=== PATIENT | female | born 1980 | race Caucasian/White ===

== ENCOUNTER → 2016-08-24 | Outpatient (CLI) | payer OTHER ==
[~2016-08-24] MED LIST: ASCO500C16 PO; FOLI0.4T2 PO; GARL1CAP7; LORA0.5T2 PO; ZIJA
--- NOTE | 2016-08-24 15:47 | DI ---
Indication: ITS.REASON: N92.4 EXCESSIVE BLEEDING PROCEDURE: US TRANSVAGINAL (NON-OB): Encounter: Initial Comparison: None FINDINGS: Transvaginal and transabdominal pelvic imaging was performed. The uterus measures 8.6 x 3.8 x 4.5 cm. The parenchyma is homogeneous without fibroids. The endometrial stripe measures 11 mm in thickness. There is no evidence of focal endometrial mass. Fluid in the cervical canal. Both ovaries are identified. The right ovary measures 3 x 1.4 x 2.8 cm. The left ovary measures 3.3 x 2.1 x 2.5 cm. Possible hemorrhagic cyst in the left ovary measuring 1.6 cm in size. There are no abnormal adnexal masses detected. Small amount of free fluid. IMPRESSION: 1. Nonspecific small amount of fluid in the cervical canal. No focal uterine or endometrial mass. 2. Small left ovarian possible hemorrhagic cyst which does not require specific follow-up. .
== END ==
LOC: IMA 14:48
PROVIDERS: ATTEND Obstetrics & Gynecology
DX: N92.4 Excessive bleeding in the premenopausal period (principal); N83.292 Other ovarian cyst, left side